=== PATIENT | female | born 1995 | race Caucasian/White ===

== ENCOUNTER 2023-03-18 11:53 | Emergency (ER) | payer SELFPAY ==
[~2023-03-18] VITALS: Ht 170.2 cm; Wt 121.3 kg
[2023-03-18 12:02] VITALS: BP 146/97; PULSE 82; RESP 20; TEMP 97.8; O2SAT 100
[2023-03-18] MEDS ORDERED: IBUP-2213 PO (14:11)
[2023-03-18] MEDS ORDERED: METH-1681 PO (14:11)
[2023-03-18 14:59] VITALS: BP 115/67; PULSE 74; RESP 17; O2SAT 98
== END 2023-03-18 14:59 | disposition home or self-care (01) ==
LOC: MED 11:53
DX: S39.012A Strain of muscle, fascia and tendon of lower back, initial encounter (principal); Z79.899 Other long term (current) drug therapy; Z79.1 Long term (current) use of non-steroidal anti-inflammatories (NSAID); X58.XXXA Exposure to other specified factors, initial encounter; Y92.89 Other specified places as the place of occurrence of the external cause; Y93.89 Activity, other specified; Y99.8 Other external cause status
CPT/HCPCS: 72110; 81025; 99283